=== PATIENT | male | born 1955 | race African-American/Black ===

== ENCOUNTER 2017-12-26 08:00 | Outpatient (CLI) | payer OTHER ==
--- NOTE | 2017-12-26 09:44 | CT ---
LOW DOSE CT SCAN CHEST FOR LUNG CANCER SCREENING: HISTORY: A 62-year-old male with a 40-year history of smoking. FINDINGS: There is a tiny, 4 mm subpleural nodule in the left posterior lower lobe. No pleural or pericardial effusions are seen. A bulla is noted in the anteromedial aspect of the left lung. There are vascula r calcifications without evidence of aneurysmal dilatation of the thoracic aorta. Mild degenerative changes are seen in the spine. IMPRESSION: Lung-RADS category 2 (benign appearance, less than 1% chance of malignancy). RECOMMENDATIONS: A follow-up LDCT is recommended in 12 months. POS: [facility]
== END 2017-12-26 08:01 | disposition home or self-care (01) ==
LOC: CT 08:00
PROVIDERS: ATTEND Family Medicine
DX: Z87.891 Personal history of nicotine dependence (principal)
CPT/HCPCS: G0297

== ENCOUNTER 2018-04-05 19:44 | Emergency (ER) | payer OTHER | END 2018-04-05 21:13 | disposition home or self-care (01) | LOC: ERS 19:44 | DX: J11.1 Influenza due to unidentified influenza virus with other respiratory manifestations (principal); I10 Essential (primary) hypertension; F17.210 Nicotine dependence, cigarettes, uncomplicated; E78.5 Hyperlipidemia, unspecified; Z79.899 Other long term (current) drug therapy | CPT/HCPCS: 87804; 99283 ==

== ENCOUNTER 2019-03-04 07:37 | Outpatient (CLI) | payer OTHER ==
--- NOTE | 2019-03-04 08:44 | CT ---
CT pulmonary lung scan without IV contrast INDICATION: Lung cancer screening protocol; nicotine dependence;personal history of smoking COMPARISON: December 26, 2017 FINDINGS: LUNGS: Nodules\mass: No suspicious nodule demonstrated. There is a partially calcified pleural-based nodule involving the right hemidiaphragm measuring 8 mm. This is stable to the prior exam. No additional pleural plaque is identified. Emphysema: There is [id number] centrilobular emphysema. There is mild paraseptal emphysema invo lving the anterior left upper lobe. Additional findings: There are coronary artery and thoracic aortic calcifications Mediastinum: No lymphadenopathy. Upper abdomen: There is a suspected new hypodensity involving the superior pole the left kidney measu ring 2.6 cm that was not definitely seen on a previous renal ultrasound dated August 18, 2013. This is best seen on image 67 of series 3. There is an exophytic 1.1 cm hyperdense lesion on image 66 of s eries 3 involving the superior pole left kidney was also not seen on the comparison renal ultrasound. There is a 3 cm hypodensity that may reflect interval growth of the previously seen left renal cyst seen on the prior renal ultrasound measuring 1.4 cm. More simple appearing 1.8 cm simple cyst is seen involving the posterior aspect of the left mid kidney. This was not fully seen on the pr ior examination. There is a 2.5 cm cyst involving the superior pole the right kidney. There is a 1.8 cm cyst involving the right mid kidney. Osseous structures: No acute abnormality.. IMPRESSION: Lung-RADS Category 2: Benign- Continue annual screening with LDCT in 12 months Category S: Interval development of new hyperdense and hypodense lesions involving the left kidney wh ich are poorly characterized on the current examination. Recommend a follow-up renal ultrasound for additional characterization. Simple right renal cysts. There is a partially calcified pleural-based n odule involving the right hemidiaphragm which is stable measuring 8 mm. This is nonspecific but may reflect sequela of prior infection or inflammation. This can be followed up in the low-dose CT scan o f the chest in 12 months. Category C: Not applicable.
== END 2019-03-04 07:38 | disposition home or self-care (01) ==
LOC: CT 07:37
PROVIDERS: ATTEND Family Medicine
DX: Z12.2 Encounter for screening for malignant neoplasm of respiratory organs (principal); F17.210 Nicotine dependence, cigarettes, uncomplicated; N28.9 Disorder of kidney and ureter, unspecified; N28.1 Cyst of kidney, acquired
CPT/HCPCS: G0297

== ENCOUNTER 2019-03-24 12:08 | Outpatient (CLI) | payer OTHER ==
--- NOTE | 2019-03-24 13:17 | ULT ---
US Renal Bilateral STANDARD: 03/24/2019 12:00 AM CLINICAL HISTORY: Renal cyst. STUDY: Renal ultrasound COMPARISON: None. FINDINGS: Right kidney: Echogenicity: Normal. Masses/cysts: Multiple anechoic cysts measuring up to 3.3 cm Hydronephrosis: None. Calcifications: None. Length: 11.1 cm Left kidney: Echogenicity: Normal. Masses/cysts: Multiple anechoic cysts measuring up to 3.7 cm Hydronephrosis: None. Calcifications: None. Length: 12.4 cm Limited visualization of the urinary bladder is unremarkable. IMPRESSION: Bilateral renal cysts
== END 2019-03-24 12:09 | disposition home or self-care (01) ==
LOC: BICULT 12:08
PROVIDERS: ATTEND Family Medicine
DX: N28.1 Cyst of kidney, acquired (principal)
CPT/HCPCS: 76770

== ENCOUNTER 2020-05-12 09:53 | Observation (INO) | payer OTHER ==
[2020-05-12] MEDS ORDERED: Aspirin Chewable 81 MG TAB ONE (10:17)
[2020-05-12] MEDS ORDERED: Nitroglycerin 0.4 MG TAB 1 EACH ONE (10:17)
[2020-05-12 10:25] LABS: #Basophils 0.1 thou/uL (0.0-0.2); #Eosinphils 0.1 thou/uL (0.0-0.7); #Lymphocytes 1.5 thou/uL (1.20-3.40); #Monocytes 0.4 thou/uL (0.11-0.59); #Neutrophils 2.9 thou/uL (1.40-6.50); %Basophils 1.2 % (0.0-1.0); %Eosinophils 1.9 % (0.0-10.0); %Lymphocytes 30.2 % (21.0-51.0); %Monocytes 7.7 % (0.0-10.0); Hemoglobin 13.5 g/dL (14.0-18.0); Mean Corpuscular HGB CONC 33.1 g/dL (32.0-36.0); Mean Corpuscular Hemoglobin 24.1 pg (27.0-31.0); Mean Corpuscular Volume 72.8 fL (78.0-98.0); Platelet Count 176 thou/uL (130-400); RBC Distribution Width 13.3 % (11.5-14.5); Red Blood Cell (RBC) Count 5.58 mill/uL (4.70-6.10)
[2020-05-12 10:54] LABS: ALT (SGPT) 40 U/L (8-55); AST (SGOT) 29 U/L (5-34); Albumin 4.3 g/dL (3.4-4.8); Alkaline Phosphatase 58 U/L (40-110); Anion Gap 12 mmol/L (10-20); BUN (Urea Nitrogen) 15 mg/dL (8.4-25.7); Bilirubin, Total 0.6 mg/dL (0.2-1.2); Calc. Creatinine Clearance 0 mL/min (70-130); Calcium 8.9 mg/dL (7.8-10.44); Carbon Dioxide 25 mmol/L (23-31); Chloride 105 mmol/L (98-107); Globulin 3.3 g/dL (2.4-3.5); Glucose 143 mg/dL (80-115); Potassium 4.4 mmol/L (3.5-5.1); Protein, Total 7.6 g/dL (5.8-8.1); Sodium 138 mmol/L (136-145)
[2020-05-12 11:32] LABS: MDiff Complete? YES; Microcytosis SLIGHT = 6-15 cells (100X) (0-5/hpf); Platelet Morphology Comment Appears Adequate; Polychromasia SLIGHT = 2-3 cells (100X) (0-2/hpf); Stomatocytes SLIGHT = 2-5 cells (100X) (0-1/hpf); Target Cells SLIGHT = 2-5 cells (100X) (0-1/hpf)
[2020-05-12] MEDS ORDERED: Nitroglycerin 0.4 MG TAB (25 Tab Bottle) SL PRN (12:41)
[2020-05-12] MEDS ORDERED: Ondansetron PF 4 MG/2 ML Vial IVP PRN (12:42)
[2020-05-12] MEDS ORDERED: Senokot S 8.6-50 MG TAB PO PRN (12:42)
[2020-05-12] MEDS ORDERED: Ondansetron ODT 4 MG TAB PO PRN (12:42)
[2020-05-12] MEDS ORDERED: Acetaminophen 325 MG TAB PO PRN (12:42)
[2020-05-12] MEDS ORDERED: Calcium Carbonate 500 MG ChewTAB PO PRN (12:42)
[2020-05-12] MEDS ORDERED: Amlodipine 10 MG TAB PO PRN (12:45)
[2020-05-12] MEDS ORDERED: Enalaprilat Dihydrate 1.25 MG/ML VIAL SLOW IVP PRN (12:46)
[2020-05-12] MEDS ORDERED: Mag-Al Plus 1200 MG/1200 MG/120 MG/30 ML UDCUP PO PRN (12:54)
[2020-05-12 13:48] LABS: Troponin I 0.027 ng/mL (< 0.028)
[2020-05-12 17:14] LABS: Troponin I 0.021 ng/mL (< 0.028)
[2020-05-12 20:07] VITALS: BMI 29.4
[2020-05-12 23:53] LABS: SARS-CoV-2 PCR by NAA Not Detected (NotDetected)
[2020-05-13] MEDS: Atorvastatin Calcium 10 MG TAB PO SCH ×2 (01:51→20:30)
[2020-05-13] MEDS ORDERED: Amlodipine 10 MG TAB PO SCH (09:00)
[2020-05-13] MEDS ORDERED: OLMESARTAN PO SCH (09:00)
[2020-05-13] MEDS ORDERED: Losartan 25 MG TAB PO SCH (09:00)
[2020-05-13] MEDS ORDERED: Aspirin 325 mg Enteric Coated Tablet PO SCH (09:00)
[2020-05-13] MEDS ORDERED: Ezetimibe 10 MG TAB PO SCH (09:00)
[2020-05-13] MEDS ORDERED: Hydrochlorothiazide 25 MG TAB PO SCH (09:00)
[2020-05-13] MEDS ORDERED: HYDROCHLOROTHIAZIDE PO SCH (09:00)
[2020-05-13] MEDS ORDERED: Lisinopril 20 MG TAB PO SCH (09:00)
[2020-05-13] MEDS ORDERED: AMLODIPINE PO SCH (09:00)
[2020-05-13] MEDS ORDERED: Iopamidol-370 76% 500 ML 1 ML ONE (12:41)
[2020-05-13 18:00] VITALS: BP 140/67; TEMP 98.5
[2020-05-13] MEDS ORDERED: FLU VACC QS2020-21(6MOS UP)/PF 60 MCG/0.5 ML SYRINGE IM ONE (21:00)
== END 2020-05-13 20:47 | disposition home or self-care (01) ==
LOC: ERS 09:53 → ERHOLD 12:28 → 2SW 19:30
PROVIDERS: ADMIT Internal Medicine; ATTEND Internal Medicine
DX: R07.89 Other chest pain (principal); I12.9 Hypertensive chronic kidney disease with stage 1 through stage 4 chronic kidney disease, or unspecified chronic kidney disease; N18.2 Chronic kidney disease, stage 2 (mild); E78.5 Hyperlipidemia, unspecified; I25.10 Atherosclerotic heart disease of native coronary artery without angina pectoris; K21.9 Gastro-esophageal reflux disease without esophagitis; F17.210 Nicotine dependence, cigarettes, uncomplicated; D50.9 Iron deficiency anemia, unspecified; Z79.899 Other long term (current) drug therapy; Z88.8 Allergy status to other drugs, medicaments and biological substances; Z20.822 Contact with and (suspected) exposure to COVID-19
CPT/HCPCS: 36415; 71045; 71275; 78452; 80053; 83735; 84484; 85025; 85379; 87635; 93005; 93017; 94760; A9500; G0378; Q9967; U0003; U0005

== ENCOUNTER 2020-09-28 07:16 | Outpatient (CLI) | payer OTHER | END 2020-09-28 07:17 | disposition home or self-care (01) | LOC: BICCT 07:16 | PROVIDERS: ATTEND Family Medicine | DX: Z12.2 Encounter for screening for malignant neoplasm of respiratory organs (principal); F17.210 Nicotine dependence, cigarettes, uncomplicated | CPT/HCPCS: 71271 ==

== ENCOUNTER 2021-11-08 07:48 | Outpatient (CLI) | payer BC | END 2021-11-08 07:49 | disposition home or self-care (01) | LOC: BICCT 07:48 | PROVIDERS: ATTEND Family Medicine | DX: Z12.2 Encounter for screening for malignant neoplasm of respiratory organs (principal); F17.210 Nicotine dependence, cigarettes, uncomplicated; J43.9 Emphysema, unspecified | CPT/HCPCS: 71271 ==

== ENCOUNTER 2022-01-09 08:33 | Outpatient (CLI) | payer BC | END 2022-01-09 08:34 | disposition home or self-care (01) | LOC: ULT 08:33 | PROVIDERS: ATTEND Internal Medicine Nephrology | DX: N18.2 Chronic kidney disease, stage 2 (mild) (principal); N28.1 Cyst of kidney, acquired | CPT/HCPCS: 76770 ==